=== PATIENT | male | born 2000 | race Caucasian/White ===

== ENCOUNTER 2024-08-17 21:15 | Emergency (ER) | payer OTHER ==
[~2024-08-17] VITALS: Ht 182.9 cm; Wt 81.6 kg
[2024-08-17 21:18] VITALS: TEMP 99.7
[2024-08-17 22:10] LABS: BASO % 0.2 % (0.0-1.0); HEMATOCRIT 48.4 % (42.0-52.0); HEMOGLOBIN 17.4 g/dl (13.5-17.5); LYMPH # 0.2 10^3/uL (1.5-5.0); LYMPH % 1.9 % (24.0-44.0); MEAN CORPUSCULAR HEMOGLOBIN 30.7 pg (27.0-33.0); MEAN CORPUSCULAR VOLUME 85.5 fl (80.0-96.0); MONO # 0.6 10^3/uL (0.0-0.8); MONO % 5.2 % (2.0-8.0); NEUTROPHILS # 11.1 10^3/uL (1.5-8.5); NEUTROPHILS % 92.4 % (36.0-66.0); PLATELET COUNT, AUTOMATED 331 10^3/uL (150-450); RED BLOOD COUNT 5.66 10^6/uL (4.30-6.10)
[2024-08-17 22:39] LABS: LIPASE 23 U/L (12-53)
[2024-08-17 22:41] LABS: ALKALINE PHOSPHATASE 50 U/L (40-129); ALT/SGPT 27 U/L (7.0-40); AST/SGOT 29 U/L (<34); BILIRUBIN,DIRECT 0.3 MG/DL (<0.4); BILIRUBIN,TOTAL 0.9 MG/DL (0.3-1.2); BLOOD UREA NITROGEN 24 MG/DL (9-23); CALCIUM LEVEL 8.9 MG/DL (8.5-10.1); CARBON DIOXIDE LEVEL 25 MMOL/L (20-31); CHLORIDE LEVEL 103 MMOL/L (98-107); CREATININE FOR GFR 0.96 MG/DL (0.70-1.30); GLOMERULAR FILTRATION RATE > 60.0 (>60); GLUCOSE, FASTING 160 MG/DL (60-100); POTASSIUM SERUM 4.4 MMOL/L (3.5-5.1); SODIUM LEVEL 139 MMOL/L (136-145); TOTAL PROTEIN 7.5 G/DL (5.7-8.2)
[2024-08-18] MEDS: ONDANSETRON 4MG ORAL DISINTEGRATING TAB PO ONE (01:17)
[2024-08-18] MEDS ORDERED: ONDA-282 PO (02:07)
[2024-08-18 02:15] VITALS: BP 119/88; O2SAT 94
== END 2024-08-18 02:28 | disposition home or self-care (01) ==
LOC: M ED 21:15
DX: B34.2 Coronavirus infection, unspecified (principal); A08.4 Viral intestinal infection, unspecified; Z79.83 Long term (current) use of bisphosphonates